=== PATIENT | male | born 1945 | race Caucasian/White ===

== ENCOUNTER 2017-01-20 07:06 | Day surgery (SDC) | payer OTHER ==
[2017-01-20] MEDS ORDERED: PROPOFOL 60 ML ONE (07:35)
[2017-01-20 07:51] VITALS: BMI 28.9
[2017-01-20 08:39] VITALS: TEMP 97.7
[2017-01-20 09:48] VITALS: BP 108/69; PULSE 74
--- NOTE | 2017-01-21 13:01 | PATH ---
Surgical Pathology Report Patient Name: COLEMAN STEWART [facility]. Rec. #: [id number] /Age/Gender: 1945 (Age: 71) / M Account: [id number] Location: U-ENDOSCOPY Taken: 01/20/2017 Received: 01/20/2017 Reported: 01/21/2017 Physicians: Julian Vincent M.D. Specimen(s) Received A: BX RECTAL POLYP B: BX CECAL POLYP C: BX RIGHT COLON POLYP D: BX TRANSVERSE COLON POLYP E: BX DESCENDING COLON POLYP Clinical History Adenoma surveillance, family history of colon cancer Polyps, diverticulosis Final Diagnosis A. RECTUM, POLYP, BIOPSY: FRAGMENTS OF HYPERPLASTIC POLYP. B. COLON, CECUM, POLYP, BIOPSY: POLYPOID FRAGMENT OF COLONIC MUCOSA WITH FOCAL SURFACE HYPERPLASTIC CHANGE. C. COLON, RIGHT, POLYP, BIOPSY: TUBULAR ADENOMA. D. 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 E. POLYP DESCENDING, POLYP, BIOPSY: HYPERPLASTIC POLYP. Electronically Signed Travon Bloom M.D. Gross Description A. Received in formalin, labeled "biopsy rectal polyp" are 2 calhoun, irregular portions of soft tissue measuring 0.2 and 0.3 cm in greatest dimension. The specimens are submitted in toto in one cassette. B. Received in formalin, labeled "biopsy cecal polyp" is a calhoun, irregular portion of soft tissue measuring 0.2 cm in greatest dimension. The specimen is submitted in toto in one cassette. C. Received in formalin, labeled "biopsy right colon polyp" are 4 calhoun, irregular portions of soft tissue ranging from 0.1-0.2 cm in greatest dimension. The specimens are submitted in toto in one cassette. D. Received in formalin, labeled "biopsy transverse colon" is a calhoun, irregular portion of soft tissue measuring 0.4 cm in greatest dimension. The specimen is submitted in toto in one cassette. E. Received in formalin, labeled "biopsy descending colon" are 3 calhoun, irregular portions of soft tissue ranging from 0.1-0.2 cm in greatest dimension. The specimens are submitted in toto in one cassette. 01/20/2017 saudi01/20/2017
== END 2017-01-20 09:48 | disposition home or self-care (01) ==
LOC: JASU-ENDO 07:06
PROVIDERS: ATTEND Internal Medicine Gastroenterology
PROC: 0DBP8ZX Excision of Rectum, Via Natural or Artificial Opening Endoscopic, Diagnostic (ICD-10-PCS; 2017-01-20)
PROC: 0DBL8ZX Excision of Transverse Colon, Via Natural or Artificial Opening Endoscopic, Diagnostic (ICD-10-PCS; 2017-01-20)
PROC: 0DBM8ZX Excision of Descending Colon, Via Natural or Artificial Opening Endoscopic, Diagnostic (ICD-10-PCS; 2017-01-20)
PROC: 0DBH8ZX Excision of Cecum, Via Natural or Artificial Opening Endoscopic, Diagnostic (ICD-10-PCS; 2017-01-20)
PROC: 0DBK8ZX Excision of Ascending Colon, Via Natural or Artificial Opening Endoscopic, Diagnostic (ICD-10-PCS; principal; 2017-01-20 08:00)
DX: Z86.010 Personal history of colon polyps (principal); K62.1 Rectal polyp; D12.0 Benign neoplasm of cecum; D12.2 Benign neoplasm of ascending colon; D12.3 Benign neoplasm of transverse colon; D12.4 Benign neoplasm of descending colon; K57.30 Diverticulosis of large intestine without perforation or abscess without bleeding; K64.8 Other hemorrhoids
CPT/HCPCS: 88305-TC

== ENCOUNTER 2019-03-31 08:08 | Day surgery (SDC) | payer OTHER | END 2019-03-31 11:33 | disposition home or self-care (01) | LOC: JASU-ENDO 08:08 ==

== ENCOUNTER 2022-03-09 04:44 | Day surgery (SDC) | payer OTHER ==
[2022-03-05 15:34] VITALS: BMI 19.8
[2022-03-09 10:21] VITALS: TEMP 97.7
[2022-03-09 11:31] VITALS: BP 103/64; PULSE 79
== END 2022-03-09 11:30 | disposition home or self-care (01) ==
LOC: JASU-ENDO 04:44
PROVIDERS: ATTEND Internal Medicine Gastroenterology
PROC: 0DJD8ZZ Inspection of Lower Intestinal Tract, Via Natural or Artificial Opening Endoscopic (ICD-10-PCS; principal; 2022-03-09 10:00)
DX: Z12.11 Encounter for screening for malignant neoplasm of colon (principal); K57.30 Diverticulosis of large intestine without perforation or abscess without bleeding; K64.8 Other hemorrhoids; Z86.010 Personal history of colon polyps; E11.9 Type 2 diabetes mellitus without complications; I10 Essential (primary) hypertension; Z79.84 Long term (current) use of oral hypoglycemic drugs
CPT/HCPCS: 82962